=== PATIENT | male | born 1990 | race African-American/Black ===

== ENCOUNTER 2017-02-16 08:50 | Inpatient (IN) | payer BC ==
[~2017-02-16] VITALS: Ht 182.9 cm; Wt 67.8 kg
--- NOTE | 2017-02-16 08:50 | NUR ---
ESPERANZA FROM HOME FOR GENERALIZED BODY PAIN AND ANXIETY SINCE 0600 TODAY. PATIENT IS AAO4, APPEARS IN NO APPARENT DISTRESS, RESPIRATION EVEN AND UNLABORED. SKIN IS WARM TO TOUCH AND NON DIAPHORETIC. PATIENT IS AFEBRILE. VSS
[2017-02-16] MEDS ORDERED: IV SET PRIMARY 1 EA INFUS.SET MC ONE (09:07)
[2017-02-16] MEDS ORDERED: IV NS 0.9% 1,000 ML ONE (09:07)
--- NOTE | 2017-02-16 09:19 | NUR ---
IV ACCESSED TO [facility]. BLOOD SAMPLE SENT TO LAB
[2017-02-16 09:29] LABS: BASOPHILS % (AUTO) 0.6 % (0.0-2.0); EOSINOPHILS # (AUTO) 0.1 /CMM (0.0-0.7); HEMATOCRIT 47 % (39-51); HEMOGLOBIN 15.8 g/dL (13.5-17.5); LYMPHOCYTES # (AUTO) 1.2 /CMM (0.8-4.8); LYMPHOCYTES % (AUTO) 16.6 % (20.0-44.0); MEAN CORPUSCULAR HEMOGLOBIN 30 PG (26.0-33.0); MEAN CORPUSCULAR HGB CONC 34 g/dl (31.0-36.0); MEAN CORPUSCULAR VOLUME 89 fL (80-96); MONOCYTES # (AUTO) 0.3 /CMM (0.1-1.30); MONOCYTES % (AUTO) 4.8 % (2.0-12.0); NEUTROPHILS # (AUTO) 5.6 /CMM (1.8-8.9); PLATELET COUNT (AUTO) 210 /CMM (150-450); RDW COEFFICIENT OF VARIATION 13.4 (11.5-15.0); RED BLOOD CELL COUNT(AUTO) 5.27 MIL/uL (4.5-6.0); WHITE BLOOD COUNT (AUTO) 7.3 K/uL (4.3-11.0)
[2017-02-16] MEDS ORDERED: IV NS 0.9% 1,000 ML BAG IV ONE (09:30)
[2017-02-16 09:36] LABS: CARBON DIOXIDE 30 mmol/L (21-32); CHLORIDE 102 mmol/L (98-107); GLUCOSE 96 mg/dL (74-106); POTASSIUM 3.3 mmol/L (3.5-5.1); SODIUM SERUM 138 mmol/L (136-145); UREA NITROGEN, BLOOD 8 mg/dL (7-18)
[2017-02-16 09:47] LABS: INR 1.12 (0.87-1.13); PROTHROMBIN TIME 12.1 SECS (9.5-12.7)
[2017-02-16 09:52] LABS: ALANINE AMINOTRANSFERASE 18 U/L (12-78); ALKALINE PHOSPHATASE 80 U/L (46-116); ASPARTATE AMINOTRANSFERASE 21 U/L (15-37); BILIRUBIN,DIRECT 0.2 mg/dL (0.0-0.2); BILIRUBIN,TOTAL 0.9 mg/dL (0.2-1.0); TOTAL PROTEIN, SERUM 6.9 g/dL (6.4-8.2)
[2017-02-16 09:56] LABS: TROPONIN I < 0.017 ng/mL (0.00-0.056)
--- NOTE | 2017-02-16 10:12 | NUR ---
PAGED DR. SCHERER FOR CONSULT
--- NOTE | 2017-02-16 10:23 | NUR ---
Mallory duque in [facility] - 02/16/17 at 1024 by ARACELY SILVIA MCKEON --- WAITING FOR DR EDWAR GUTIÉRREZ FOR CALL BACK
--- NOTE | 2017-02-16 10:24 | NUR ---
PAGED [facility] --- WAITING FOR DR EDWAR GUTIÉRREZ TO CALL BACK
[2017-02-16] MEDS ORDERED: MAGNESIUM HYDROXIDE 30 ML UDC PO PRN (10:30)
[2017-02-16] MEDS ORDERED: ONDANSETRON HCL/PF 4 MG/2 ML VIAL IVP PRN (10:30)
[2017-02-16] MEDS ORDERED: MAG HYDROX/AL HYDROX/SIMETH 30 ML UDC PO PRN (10:30)
[2017-02-16] MEDS ORDERED: Z GUARD REMEDY 2 OZ OINT TP PRN (10:30)
[2017-02-16] MEDS ORDERED: ENOXAPARIN SODIUM 40 MG/0.4 ML DISP.SYRIN SQ SCH (10:30)
[2017-02-16] MEDS ORDERED: ACETAMINOPHEN 325 MG TABLET PO PRN (10:30)
[2017-02-16] MEDS ORDERED: HYDROCODONE/APAP 5/325MG 1 EACH TABLET PO PRN (10:30)
--- NOTE | 2017-02-16 10:49 | NUR ---
REPORT GIVEN TO WOLF ANDREW FOR COLIN MS 203
[2017-02-16 10:51] LABS: APPEARANCE,URINE Clear (CLEAR); BILIRUBIN,URINE Negative (NEGATIVE); BLOOD, URINE Negative Ery/uL (NEGATIVE); COLOR,URINE Yellow (YELLOW); KETONES,URINE Trace (NEGATIVE); LEUKOCYTE ESTERASE ,URINE Negative (NEGATIVE); NITRITE, URINE Negative (NEGATIVE); PH,URINE 7.5 (5.0-8.0); PROTEIN,URINE Negative (NEGATIVE); UGLUCOSE Negative (NEGATIVE)
[2017-02-16 10:59] LABS: BACTERIA,URINE None seen /HPF (None Seen); RBC,URINE NONE SEEN /HPF (0-2); SQUAMOUS EPITHELIAL CELL,UR Rare /HPF (None Seen); WBC,URINE 0-2 /HPF (0-3)
[2017-02-16 11:00] VITALS: BP 128/76
[2017-02-16 11:00] LABS: MUCUS,URINE Rare /LPF (None Seen)
--- NOTE | 2017-02-16 11:15 | NUR ---
MS RN OPENING RECEIVED PATIENT A/OX4 DENIES PAIN, SOB, DIFFICULTY BREATHING. PATIENT STATES HIS WEAKNESS HAS MOSTLY SUBSIDED BUT STILL SOME TINGLING IN HANDS AND FEET. PATIENT WAS ABLE TO AMBULATE TO BED INDEPENDENTLY FROM WHEELCHAIR. PATIENT STATES HE FEELS HEAVY STILL NO DIZZINESS. ALL NEEDS MET, CALL LIGHT IN REACH, BED LOWERED AND LOCKED, WILL ROUND Q2H OR LESS
--- NOTE | 2017-02-16 11:40 | NUR ---
MS RN NOTES DR VANN AT BEDSIDE. NOTIFIED MD PATIENT IS AMBULATING WITH SOME RESIDUAL TINGLING OF LIMBS. ASKED MD IF HE WANTED PATIENT ON TELE STILL. PER MD TRANSFER TO MED SURG. AND ORDER MRI WO OF HEAD AND NECK
[2017-02-16 11:51] VITALS: BP 128/76
[2017-02-16] MEDS ORDERED: POTASSIUM CHLORIDE 20 MEQ TAB.PRT.SR PO ONE (12:30)
[2017-02-16 14:30] VITALS: BP 118/78
[2017-02-16 16:30] VITALS: BP 118/78
--- NOTE | 2017-02-16 18:54 | NUR ---
MS RN CLOSING PATIENT STABLE NO COMPLICATIONS NO CHANGES. ALL DUE MEDS GIVEN AND ALL NEEDS MET. FATHER AT BEDSIDE. PATIENT STATES NO NEEDS. WILL ENDORSE CARE TO ESSENCE BLOOM FOR COLIN. RAILS UPX2 FOR SAFETY
[2017-02-16 20:00] VITALS: BP 128/72
[2017-02-16] MEDS ORDERED: ZOLPIDEM TARTRATE 5 MG TABLET PO PRN (22:00)
--- NOTE | 2017-02-17 06:46 | NUR ---
MS RN NOTES AWAKE & RESPONSIVE. NOT IN ANY DISTRESS. NO SOB NOTED. DENIES ANY PAIN OR DISCOMFORT AT THIS TIME. WITH IV-HL PATENT & INTACT. MONITORED ACCORDINGLY. CALL LIGHT WITHIN REACH. BED IN LOWEST POSITION. SR UP X 2 FOR SAFETY. WILL ENDORSE TO NEXT SHIFT.
[2017-02-17 06:50] LABS: BASOPHILS % (AUTO) 0.6 % (0.0-2.0); EOSINOPHILS # (AUTO) 0.3 /CMM (0.0-0.7); HEMATOCRIT 47 % (39-51); HEMOGLOBIN 16.2 g/dL (13.5-17.5); LYMPHOCYTES % (AUTO) 53.2 % (20.0-44.0); MEAN CORPUSCULAR HEMOGLOBIN 31 PG (26.0-33.0); MEAN CORPUSCULAR HGB CONC 34 g/dl (31.0-36.0); MEAN CORPUSCULAR VOLUME 89 fL (80-96); MONOCYTES # (AUTO) 0.4 /CMM (0.1-1.30); MONOCYTES % (AUTO) 6.8 % (2.0-12.0); NEUTROPHILS # (AUTO) 1.9 /CMM (1.8-8.9); NEUTROPHILS % (AUTO) 33.4 % (43.0-81.0); PLATELET COUNT (AUTO) 202 /CMM (150-450); RDW COEFFICIENT OF VARIATION 13.4 (11.5-15.0); RED BLOOD CELL COUNT(AUTO) 5.32 MIL/uL (4.5-6.0); WHITE BLOOD COUNT (AUTO) 5.6 K/uL (4.3-11.0)
[2017-02-17 07:07] LABS: THYROID STIMULATING HORMONE 0.312 uIU/mL (0.358-3.74)
[2017-02-17] MEDS ORDERED: PANTOPRAZOLE 40 MG TABLET.DR PO SCH (07:30)
--- NOTE | 2017-02-17 07:44 | NUR ---
RN OPENING NOTES RECEIVED PATIENT IN BED, ASLEEP, HOB, NO SOB OR DISTRESS NOTED. A/O X 4, VERBALLY RESPONSIVE AND ABLE TO MAKE NEEDS KNOWN. IV INTACT AND PATENT. KEPT PATIENT CLEAN AND COMFORTABLE IN BED, CALL LIGHT WITHIN PATIENT REACH. WILL CONTINUE TO MONITOR ACCORDINGLY.
[2017-02-17 08:00] VITALS: BP 120/68
[2017-02-17 08:24] LABS: CALCIUM, SERUM 8.7 mg/dL (8.5-10.1); CREATININE 0.8 mg/dL (0.6-1.3); PHOSPHORUS 4.2 mg/dL (2.5-4.9); POTASSIUM 3.9 mmol/L (3.5-5.1)
--- NOTE | 2017-02-17 11:00 | NUR ---
RN NOTES MRSA DONE
--- NOTE | 2017-02-17 13:50 | NUR ---
INTERNAL SECURITY MANAGER NOTES DISCHARGE INSTRUCTIONS GIVEN TO PATIENT AND ABLE TO UNDERSTAND INSTRUCTIONS AND SIGNED DISCHARGE PAPER AND BELONGINGS. PATIENT LEFT WALKING ACCOMPANIED WITH FRIEND SUNDEEP AND SISTER IN STABLE CONDITION. IV REMOVED. NO SOB OR DISTRESS NOTED. VITALS SIGNS CHECKED AND RECORDED. MD AND CHARGE NURSE AWARE.
== END 2017-02-17 13:50 | disposition home or self-care (01) | DRG 882 ==
LOC: ER 08:52 → MEDSG2 10:53
DX: F45.9 Somatoform disorder, unspecified (principal); F44.9 Dissociative and conversion disorder, unspecified; F32.9 Major depressive disorder, single episode, unspecified; F41.9 Anxiety disorder, unspecified; E87.6 Hypokalemia
CPT/HCPCS: 36415; 70450-TC; 70547-TC; 70551-TC; 71010-TC; 80048-TC; 80061-TC; 80076-TC; 80305; 81000-TC; 83735-TC; 84100-TC; 84443-TC; 84484-TC; 85025-TC; 85730-TC; 87081-TC; 97001-TC; A4606; G0480; J1650; J7030; Z7610